=== PATIENT | female | born 1950 | race Caucasian/White ===

== ENCOUNTER 2020-08-07 13:44 | Outpatient (CLI) | payer MEDICARE, OTHER | END 2020-08-07 13:45 | disposition home or self-care (01) | LOC: CSHMRI 13:44 | PROVIDERS: ATTEND Orthopaedic Surgery | DX: M23.92 Unspecified internal derangement of left knee (principal); M17.12 Unilateral primary osteoarthritis, left knee; S83.242A Other tear of medial meniscus, current injury, left knee, initial encounter ==

== ENCOUNTER 2021-01-14 10:18 | Outpatient (CLI) | payer MEDICARE, OTHER | END 2021-01-14 10:19 | disposition home or self-care (01) | LOC: CSHMAMMO 10:18 | PROVIDERS: ATTEND Internal Medicine Rheumatology | DX: Z12.31 Encounter for screening mammogram for malignant neoplasm of breast (principal); Z13.820 Encounter for screening for osteoporosis; Z78.0 Asymptomatic menopausal state; M85.851 Other specified disorders of bone density and structure, right thigh; M85.852 Other specified disorders of bone density and structure, left thigh | CPT/HCPCS: 77080 ==

== ENCOUNTER 2024-12-13 09:12 | Outpatient (CLI) | payer MEDICARE, OTHER ==
[2024-12-13] MEDS ORDERED: Iopamidol 300 61% 100 ML VIAL FS ONE (10:37)
[2024-12-13 11:05] LABS: Estimated GFR - POC 67.0
== END 2024-12-13 09:13 | disposition home or self-care (01) ==
LOC: CSHCT 09:12
PROVIDERS: ATTEND Physician Assistant Medical
DX: R10.32 Left lower quadrant pain (principal); M25.78 Osteophyte, vertebrae; R13.10 Dysphagia, unspecified; R19.4 Change in bowel habit; L65.0 Telogen effluvium; R63.4 Abnormal weight loss; K57.30 Diverticulosis of large intestine without perforation or abscess without bleeding; K76.9 Liver disease, unspecified; D73.9 Disease of spleen, unspecified; D35.02 Benign neoplasm of left adrenal gland; N28.1 Cyst of kidney, acquired; K44.9 Diaphragmatic hernia without obstruction or gangrene
CPT/HCPCS: 36415; 74177; 82565; Q9967

== ENCOUNTER 2024-12-28 10:52 | Outpatient (CLI) | payer MEDICARE, OTHER | END 2024-12-28 10:53 | disposition home or self-care (01) | LOC: CSHCT 10:52 | PROVIDERS: ATTEND Physician Assistant Medical | DX: R10.32 Left lower quadrant pain (principal); M25.78 Osteophyte, vertebrae; R13.10 Dysphagia, unspecified; R19.4 Change in bowel habit; L65.0 Telogen effluvium; R63.4 Abnormal weight loss; K57.30 Diverticulosis of large intestine without perforation or abscess without bleeding; K22.4 Dyskinesia of esophagus; K21.9 Gastro-esophageal reflux disease without esophagitis; K44.9 Diaphragmatic hernia without obstruction or gangrene | CPT/HCPCS: 74220 ==